=== PATIENT | male | born 1985 | race Caucasian/White ===

== ENCOUNTER 2021-09-11 19:21 | Emergency (ER) | payer MEDICAID ==
[~2021-09-11] VITALS: Ht 170.2 cm; Wt 113.4 kg
[2021-09-11] MEDS ORDERED: ceFAZolin 1GM/50ML 100 ML IV ONE (20:00)
[2021-09-11] MEDS ORDERED: ONDANSETRON HCL 4 MG/2 ML VIAL IV ONE (20:00)
[2021-09-11] MEDS ORDERED: HYDROmorphone HCL 2 MG/ML VL IV ONE (20:00)
[2021-09-11] MEDS ORDERED: SODIUM CHLORIDE 0.9% 3,400 ML IV ONE (20:00)
[2021-09-11 21:34] LABS: Basophils # (auto) 0 10 ^3/uL (0-0.2); Basophils % (auto) 0.2 % (0.0-2.0); Eosinophils # (auto) 0 10 ^3/uL (0-0.8); Eosinophils % (auto) 0.2 % (0.0-7.0); Hematocrit 36.4 % (41.0-53.0); Hemoglobin 12.9 g/dL (13.5-17.5); Lymphocytes % (auto) 12.3 % (10.0-50.0); Mean Corpuscular Hemoglobin 30.9 pg (28.0-32.0); Mean Corpuscular Hgb Conc. 35.5 g/dL (32.0-36.0); Mean Corpuscular Volume 87.1 fL (80.0-100.0); Monocytes # (auto) 0.9 10 ^3/uL (0-1.3); Monocytes % (auto) 10.8 % (0.0-12.0); Neutrophils # (auto) 6.2 10 ^3/uL (1.6-8.6); Neutrophils % (auto) 76.5 % (37.0-80.0); Nucleated Red Blood Cells % 0.2 %; Red Blood Cells 4.18 10^6/uL (4.5-5.90); Red Cell Distribution Width 13.6 % (11.8-14.3)
[2021-09-11 21:42] LABS: Potassium 3.4 mmol/L (3.5-5.1)
[2021-09-11 21:57] LABS: Albumin 3.9 g/dL (3.4-5.0); BUN/Creatinine Ratio 16.9; Bilirubin, Total 1.4 mg/dL (0.2-1.0); CRP High Sensitivity 8.8 mg/dL (< 0.3); Calcium 8.8 mg/dL (8.5-10.1); Total Protein 8.1 g/dL (6.4-8.2)
[2021-09-12] MEDS ORDERED: HYDROmorphone HCL 2 MG/ML VL IV ONE (00:45)
[2021-09-12 01:16] VITALS: BP 103/87
== END 2021-09-12 03:26 | disposition left against medical advice (07) ==
LOC: ER 19:21
DX: S61.452A Open bite of left hand, initial encounter (principal); L03.114 Cellulitis of left upper limb; Z88.0 Allergy status to penicillin; W54.0XXA Bitten by dog, initial encounter; Y93.89 Activity, other specified; Y92.89 Other specified places as the place of occurrence of the external cause; Y99.8 Other external cause status
CPT/HCPCS: 36415; 73130; 73200; 80053; 85025; 85652; 86141; 87040; 96365; 96375; 99285; J0690; J1170; J7030; J7040; J2405

== ENCOUNTER 2023-05-04 20:16 | Emergency (ER) | payer MEDICAID, OTHER ==
[~2023-05-04] VITALS: Ht 170.2 cm; Wt 100.0 kg
[2023-05-04 20:36] VITALS: BP 124/81; RESP 20; O2SAT 100
[2023-05-04] MEDS ORDERED: HYDROmorphone HCL 2 MG/ML VL/or syr IV ONE (20:45)
[2023-05-04] MEDS ORDERED: ONDANSETRON HCL 4 MG/2 ML VIAL IV ONE (20:45)
[2023-05-04 22:11] VITALS: PULSE 144
[2023-05-05] MEDS ORDERED: ASPirin 325 MG TAB PO ONE (02:15)
== END 2023-05-04 22:08 | disposition left against medical advice (07) ==
LOC: ER 20:18
DX: R79.89 Other specified abnormal findings of blood chemistry (principal); F15.90 Other stimulant use, unspecified, uncomplicated; Z88.0 Allergy status to penicillin
CPT/HCPCS: 93005